=== PATIENT | male | born 1950 | race African-American/Black ===

== ENCOUNTER 2025-06-13 20:28 | Inpatient (IN) | payer MEDICARE, OTHER ==
[2025-06-13 22:08] LABS: #Basophils 0.06 10x3/uL (0.0-0.2); #Eosinophils 0.22 10x3/uL (0.0-0.7); #Monocytes 0.88 10x3/uL (0.11-0.59); #Neutrophils 6.15 10x3/uL (1.40-6.50); %Basophils 0.6 % (0.0-1.0); %Eosinophils 2.1 % (0.0-10.0); %Lymphocytes 28.6 % (21.0-51.0); %Monocytes 8.5 % (0.0-10.0); %Neutrophils 59.8 % (42.0-75.0); Hematocrit 43.9 % (42.0-52.0); Hemoglobin 14.0 g/dL (14.0-18.0); Mean Corpuscular Hemoglobin 25.4 pg (27.0-31.0); Mean Corpuscular Volume 79.5 fL (78.0-98.0); Platelet Count 152 10x3/uL (130-400); Red Blood Cell (RBC) Count 5.52 mill/uL (4.70-6.10); White Blood Cell (WBC) Count 10.30 10x3/uL (4.8-10.8)
[2025-06-14 02:07] LABS: ALT (SGPT) 19 U/L (Less than 45); AST (SGOT) 35 U/L (11-34); Albumin 3.7 g/dL (3.1-4.5); Alkaline Phosphatase 89 U/L (40-110); Anion Gap 13 mmol/L (10-20); BUN (Urea Nitrogen) 26 mg/dL (8.4-25.7); Bilirubin, Total 0.7 mg/dL (0.3-1.2); Calc. Creatinine Clearance 0 mL/min (70-130); Calcium 9.6 mg/dL (7.8-10.44); Carbon Dioxide 19 mmol/L (23-31); Chloride 112 mmol/L (98-107); Globulin 4.0 g/dL (2.4-3.5); Glucose 97 mg/dL (83-110); Potassium 4.3 mmol/L (3.5-5.1); Sodium 140 mmol/L (136-145)
[2025-06-14] MEDS ORDERED: Heparin 5,000 UNITS/ML VIAL ONE (02:48)
[2025-06-14 04:30] LABS: PTT 29.8 sec (22.9-36.1)
[2025-06-14 04:38] LABS: INR-International Normal Ratio 1.2; Prothrombin Time 14.9 sec (12.0-14.7)
[2025-06-14] MEDS ORDERED: Acetaminophen 325 MG TAB PO PRN (04:43)
[2025-06-14] MEDS ORDERED: Ondansetron PF 4 MG/2 ML Vial IVP PRN (04:43)
[2025-06-14] MEDS ORDERED: Glucagon 1 MG/ML KIT IM PRN (04:47)
[2025-06-14] MEDS ORDERED: Dextrose 50% Abboject 50 ML SYRINGE SLOW IVP PRN (04:47)
[2025-06-14] MEDS ORDERED: Sodium Chloride 0.65% Nasal 44 ML BOT EA NARE PRN (06:48)
[2025-06-14] MEDS ORDERED: Heparin 10,000 UNITS/ 10 ML VIAL SLOW IVP SCH (08:45)
[2025-06-14] MEDS ORDERED: Iopamidol-370 76% 500 ML MDV (1 ML CHARGE) ONE (09:22)
[2025-06-14 10:28] LABS: PTT Greater than 250.0 sec (22.9-36.1)
[2025-06-14 10:55] VITALS: BMI 35.6
[2025-06-14] MEDS: Sodium Chloride 0.65% Nasal 44 ML BOT EA NARE PRN (20:02)
[2025-06-14 22:03] LABS: PTT 131.0 sec (22.9-36.1)
[2025-06-15] MEDS: Senokot S 8.6-50 MG TAB PO PRN (04:08)
[2025-06-15 07:04] LABS: #Basophils 0.05 10x3/uL (0.0-0.2); #Eosinophils 0.20 10x3/uL (0.0-0.7); #Monocytes 0.67 10x3/uL (0.11-0.59); #Neutrophils 5.02 10x3/uL (1.40-6.50); %Basophils 0.6 % (0.0-1.0); %Eosinophils 2.4 % (0.0-10.0); %Lymphocytes 29.5 % (21.0-51.0); %Monocytes 7.9 % (0.0-10.0); %Neutrophils 59.2 % (42.0-75.0); Hematocrit 42.0 % (42.0-52.0); Hemoglobin 13.0 g/dL (14.0-18.0); Mean Corpuscular Hemoglobin 24.8 pg (27.0-31.0); Mean Corpuscular Volume 80.2 fL (78.0-98.0); Platelet Count 144 10x3/uL (130-400); Red Blood Cell (RBC) Count 5.24 mill/uL (4.70-6.10); White Blood Cell (WBC) Count 8.47 10x3/uL (4.8-10.8)
[2025-06-15 07:15] LABS: Anion Gap 14 mmol/L (10-20); BUN (Urea Nitrogen) 20 mg/dL (8.4-25.7); Calc. Creatinine Clearance 97 mL/min (70-130); Calcium 9.2 mg/dL (7.8-10.44); Carbon Dioxide 21 mmol/L (23-31); Chloride 107 mmol/L (98-107); Glucose 260 mg/dL (83-110); Potassium 4.5 mmol/L (3.5-5.1); Sodium 137 mmol/L (136-145)
[2025-06-15] MEDS: Metoprolol Succinate XL 25 MG ER.TAB PO SCH (08:38)
[2025-06-15] MEDS: Insulin Glargine 30 UNITS/0.3 ML VIAL SC SCH (09:07)
[2025-06-15 14:54] VITALS: BMI 35.6
[2025-06-15] MEDS: Apixaban 5 MG TAB PO SCH (21:05)
[2025-06-16 04:07] LABS: Hematocrit 41.7 % (42.0-52.0); Hemoglobin 13.3 g/dL (14.0-18.0); Mean Corpuscular Hemoglobin 25.5 pg (27.0-31.0); Mean Corpuscular Volume 80.0 fL (78.0-98.0); Platelet Count 167 10x3/uL (130-400); Red Blood Cell (RBC) Count 5.21 mill/uL (4.70-6.10); White Blood Cell (WBC) Count 8.23 10x3/uL (4.8-10.8)
[2025-06-16 04:20] LABS: Anion Gap 13 mmol/L (10-20); BUN (Urea Nitrogen) 19 mg/dL (8.4-25.7); Calc. Creatinine Clearance 101 mL/min (70-130); Calcium 9.3 mg/dL (7.8-10.44); Carbon Dioxide 21 mmol/L (23-31); Chloride 105 mmol/L (98-107); Glucose 267 mg/dL (83-110); Potassium 4.2 mmol/L (3.5-5.1); Sodium 135 mmol/L (136-145)
[2025-06-16 06:46] LABS: Burr Cells SLIGHT = 2-5 cells HPF (0-1); Platelet Adequacy Comment Platelets Normal; Smudge Cells 17.8 %
[2025-06-16 07:59] VITALS: BP 118/67; TEMP 97.9
[2025-06-17] MEDS ORDERED: FLU (Fluad Triv) 25-26 (65UP)PF 45 MCG/0.5 ML Syringe IM ONE (09:00)
== END 2025-06-16 13:00 | disposition home or self-care (01) | DRG 176 ==
LOC: ERS 20:28 → ERHOLD 06-14 04:25 → PCU 06-14 17:07
PROVIDERS: ADMIT Internal Medicine; ATTEND Internal Medicine
PROC: 3E0234Z Introduction of Serum, Toxoid and Vaccine into Muscle, Percutaneous Approach (ICD-10-PCS; principal; 2025-06-14)
PROC: 3E03329 Introduction of Other Anti-infective into Peripheral Vein, Percutaneous Approach (ICD-10-PCS; 2025-06-14)
DX: I26.92 Saddle embolus of pulmonary artery without acute cor pulmonale (principal); N17.9 Acute kidney failure, unspecified; I82.532 Chronic embolism and thrombosis of left popliteal vein; I10 Essential (primary) hypertension; E78.5 Hyperlipidemia, unspecified; E11.22 Type 2 diabetes mellitus with diabetic chronic kidney disease; N18.30 Chronic kidney disease, stage 3 unspecified; E11.51 Type 2 diabetes mellitus with diabetic peripheral angiopathy without gangrene; I25.10 Atherosclerotic heart disease of native coronary artery without angina pectoris; Z96.652 Presence of left artificial knee joint; Z88.0 Allergy status to penicillin; Z79.899 Other long term (current) drug therapy; Z79.02 Long term (current) use of antithrombotics/antiplatelets; Z79.4 Long term (current) use of insulin; Z86.73 Personal history of transient ischemic attack (TIA), and cerebral infarction without residual deficits; Z87.891 Personal history of nicotine dependence; Z89.422 Acquired absence of other left toe(s)
CPT/HCPCS: 36415; 36416; 71045; 71275; 80048; 80053; 83605; 83880; 84484; 85025; 85610; 85730; 93005; 93306; 93970; 96365; 96366; J1644; J1815; J7120; Q9967